=== PATIENT | male | born 1950 | race Caucasian/White ===

== ENCOUNTER → 2016-05-10 | Outpatient (CLI) | payer MEDICARE ==
[2015-12-30 08:06] VITALS: BP 172/97
[~2016-05-10] MED LIST: CARB200T PO; GABA600T2 PO
--- NOTE | 2016-05-10 13:58 | KCIC ---
PROCEDURE MR of the left shoulder HISTORY Left shoulder pain. Osteoarthritis. Injury January 2016. COMPARISON None FINDINGS The acromioclavicular joint is minimally degenerative. There is thickening and increased signal within the rotator cuff compatible with tendinosis. There is a linear tear at the undersurface of the supraspinatus tendon at both the anterior and posterior aspects compatible with partial thickness tearing, 40 percent deep. No large deep full-thickness rotator cuff tear. Trace subdeltoid bursal fluid. No significant joint effusion. Heterogeneous signal within the superior labrum, compatible with mild degenerative tear. There is some faint indeterminate signal along the posterior labrum could represent additional degenerative tearing. Glenohumeral joint demonstrates mild primary osteoarthritis and chondromalacia. Trace joint fluid. The biceps tendon is intact. No bone lesion or acute fracture. No acute soft tissue injury. IMPRESSION 1. Rotator cuff tendinosis. Small partial thickness undersurface tearing of the supraspinatus tendon. 2. Primary osteoarthritis. 3. Mild degenerative tearing of the superior and possibly posterior labrum. Electronically signed by: Jonnie Jung MD (May 10, 2016 13:57:01)
== END | disposition home or self-care (01) ==
LOC: KCIC MRI 11:14
PROVIDERS: ATTEND Nurse Practitioner Family
DX: M17.12 Unilateral primary osteoarthritis, left knee (principal)
CPT/HCPCS: 73221

== ENCOUNTER → 2017-02-15 | Day surgery (SDC) | payer MEDICARE ==
[~2017-02-15] MED LIST changes: +ASPI325T11 PO; +ATOR20TA58 PO; +B12/1TAB3 PO; +CHOL5000 PO; +HYDROmorphone 2 MG/ML VIAL IV PRN; +IV RINGERS,LACTATED 1000ML 1,000 ML IV SCH; +LIDOCAINE 1% PF 2 ML VIAL. ID PRN; +LISI-334 PO; +MORPHINE SULFATE 2 MG/ML DISP.SYRIN. IV PRN; +ONDANSETRON PF 4 MG/2 ML VIAL. IV PRN; +PROCHLORPERAZINE 10 MG/2 ML VIAL. IV PRN; +PROPOFOL 40 ML IV ONE; +ZOLP5TAB PO; +fentaNYL PF VIAL 100 MCG/2 ML VIAL IV PRN
[2017-02-15 08:17] VITALS: BP 127/67
--- NOTE | 2017-02-15 21:24 | CONS ---
DATE OF CONSULTATION: 02/15/2017 REFERRING PHYSICIAN: Dr. Espitia. 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 HISTORY OF PRESENT ILLNESS: A 67-year-old male with past medical history significant for colonic polyps, arthritis, sleep apnea, asthma, diverticulosis of the colon, hypertension is seen for surveillance exam. Colonoscopy a year ago did reveal a tubulovillous adenoma with high grade dysplasia with clean margin. Surveillance exam was recommended to reassess the area. Denies any change in bowel habits. No melena, hematochezia, diarrhea, constipation. He has otherwise been without additional complaints. PAST MEDICAL HISTORY: Hypertension, history of colon polyps, diverticulosis. ALLERGIES: None. MEDICATIONS: Include gabapentin and lisinopril. FAMILY AND SOCIAL HISTORY: He is a nonsmoker, nondrinker. PAST SURGICAL HISTORY: Status post appendectomy, hemorrhoidectomy, hernia surgery. REVIEW OF SYSTEMS: Per records. PHYSICAL EXAMINATION: GENERAL: Reveals a well-nourished, well-developed male who is alert, cooperative, in no acute distress. VITAL SIGNS: Temperature is 98, pulse 83, respirations 20. HEENT: Normocephalic and atraumatic head. Pupils and extraocular muscles not tested. Sclerae anicteric. NECK: Supple. LUNGS: Clear. CARDIOVASCULAR: Reveals an S1, S2 without S3, S4 or appreciable murmur. ABDOMEN: Soft abdomen, normal bowel sounds, without appreciable hepatosplenomegaly. EXTREMITIES: Reveals no cyanosis, clubbing or edema. IMPRESSION: Colorectal screen with a history of a tubulovillous adenoma with high-grade dysplasia of the sigmoid colon was recommended at this time. Risks and benefits have been previously discussed. The patient is willing to proceed. KETTY GOMEZ MD DR: CINTHIA/katya JOB#: [id number] / [id number]
== END | disposition home or self-care (01) ==
LOC: ENDOS 06:16
PROVIDERS: ATTEND Internal Medicine Gastroenterology
DX: Z09 Encounter for follow-up examination after completed treatment for conditions other than malignant neoplasm (principal); Z86.010 Personal history of colon polyps; K64.0 First degree hemorrhoids; K57.30 Diverticulosis of large intestine without perforation or abscess without bleeding; I10 Essential (primary) hypertension; M19.91 Primary osteoarthritis, unspecified site; Z98.890 Other specified postprocedural states; Z87.39 Personal history of other diseases of the musculoskeletal system and connective tissue; Z72.89 Other problems related to lifestyle
CPT/HCPCS: 45378; J2704

== ENCOUNTER → 2017-04-24 | Outpatient (CLI) | payer MEDICARE | END | disposition home or self-care (01) | LOC: ECHO 08:31 | DX: I63.9 Cerebral infarction, unspecified (principal); G45.9 Transient cerebral ischemic attack, unspecified | CPT/HCPCS: 93306 ==

== ENCOUNTER → 2018-11-26 | Outpatient (CLI) | payer MEDICARE ==
[2017-04-18 08:03] VITALS: BP 143/84
[~2018-11-26] MED LIST changes: -GABA600T2 PO; +GABA600T7 PO; -HYDROmorphone 2 MG/ML VIAL IV PRN; -IV RINGERS,LACTATED 1000ML 1,000 ML IV SCH; -LIDOCAINE 1% PF 2 ML VIAL. ID PRN; -MORPHINE SULFATE 2 MG/ML DISP.SYRIN. IV PRN; -ONDANSETRON PF 4 MG/2 ML VIAL. IV PRN; -PROCHLORPERAZINE 10 MG/2 ML VIAL. IV PRN; -PROPOFOL 40 ML IV ONE; -fentaNYL PF VIAL 100 MCG/2 ML VIAL IV PRN
--- NOTE | 2018-12-03 18:28 | SLEEP ---
DATE OF STUDY: 12/02/2018 HOME POLYSOMNOGRAM REPORT OBJECTIVE: The patient is a 68-year-old male with insomnia, observed apnea, excessive somnolence; [place] sleep score of 9, height 72 inches, weight 205 pounds, body mass index 27.8. INTERPRETATION: There are 216 obstructive apneas, 14 mixed apneas, 22 hypopneas, 252 total events for an apnea-hypopnea index of 35 events per hour of sleep. The minimum oxygen saturation is 85%. No significant cardiac arrhythmias are observed. IMPRESSION: Abnormal polysomnogram, home sleep study, showing severe obstructive sleep apnea and hypopnea. RECOMMENDATIONS: I will attempt to arrange for empirically starting the patient on variable CPAP and the patient will return to the Lab for a CPAP or BiPAP titration study. Thank you for letting us help with the patient's care. CESILIA ARREDONDO MD DR: ELISEO/katya JOB#: [id number] / [id number] MARQUEZ Murillo MD
== END | disposition home or self-care (01) ==
LOC: RT 09:45
PROVIDERS: ATTEND Psychiatry & Neurology Neurology with Special Qualifications in Child Neurology
DX: G47.33 Obstructive sleep apnea (adult) (pediatric) (principal)
CPT/HCPCS: G0399

== ENCOUNTER → 2019-01-06 | Outpatient (CLI) | payer MEDICARE ==
[2017-04-18 08:03] VITALS: BP 143/84
[~2019-01-06] MED LIST changes: +ZOLPIDEM 5 MG TABLET. PO ONE
--- NOTE | 2019-01-07 20:57 | SLEEP ---
DATE OF STUDY: 01/06/2019 OBJECTIVE: The patient is a 68-year-old male who underwent a home polysomnogram on 12/02/2018 showing severe obstructive sleep apnea and hypopnea. Height 6 feet 0 inches, weight 205 pounds, body mass index 28, [place] sleep score 5. INTERPRETATION: Sleep architecture is characterized by sleep efficiency of 73% across the 7.4 hours of recording time. Stage volumes are appropriate for age. There are a total of 47 respiratory events on the CPAP titration study. The minimum oxygen saturation is 90%. The patient was tried on a variety of CPAP settings and at the best using 13 cm, achieving an apnea-hypopnea index of 1 event per hour of sleep. A 44 periodic limb movements of sleep occurred per hour, 1 per hour associated with arousal. There is occasional bradycardia. IMPRESSION: Abnormal polysomnogram showing successful CPAP titration on 13 cm using a [employer] DreamWear full face mask, medium size. RECOMMENDATIONS: 1. I will attempt to arrange for the CPAP setting. 2. The patient will pursue weight loss and avoid sedatives and alcohol. 3. He will follow up in my clinic as scheduled. Thank you for letting me help with the patient's care. CESILIA ARREDONDO MD DR: ELISEO/katya JOB#: [id number] / [id number] MARQUEZ Murillo MD
== END | disposition home or self-care (01) ==
LOC: RT 18:54
PROVIDERS: ATTEND Psychiatry & Neurology Neurology with Special Qualifications in Child Neurology
DX: G47.33 Obstructive sleep apnea (adult) (pediatric) (principal)
CPT/HCPCS: 95811